=== PATIENT | male | born 1955 | race Caucasian/White ===

== ENCOUNTER 2020-06-22 07:53 | Outpatient (REF) | payer OTHER, SELFPAY | END 2020-06-22 07:54 | disposition home or self-care (01) | LOC: HO.LAB 07:53 | PROVIDERS: PCP Internal Medicine; Visit Provider Internal Medicine | DX: Z20.828 Contact with and (suspected) exposure to other viral communicable diseases (principal) | CPT/HCPCS: C9803; U0003 ==

== ENCOUNTER 2020-09-29 11:01 | Outpatient (REF) | payer OTHER, SELFPAY ==
[2020-09-29 12:50] LABS: MANUAL DIFF FLAG NO
[2020-09-29 13:12] LABS: Basophils Absolute Auto 0.1 X10*3/uL (0.0-0.2); Basophils Percent Auto 0.8 % (0-2); Eosinophils Absolute Auto 0.1 X10*3/uL (0.0-0.4); Eosinophils Percent Auto 1.4 % (0-4); Hematocrit 46.4 % (42-52); Hemoglobin 16.7 g/dl (14.0-18.0); Imm Gran Abs Auto 0.03 X10*3/uL (0.00-0.03); Imm Gran Pct Auto 0.4 % (0.0-0.4); Lymphocytes Absolute Auto 2.8 X10*3/uL (1.2-4.9); Mean Corpuscular Hemoglobin 32.6 pg (27.0-33.0); Mean Corpuscular Volume 90.6 fL (80-98); Mean Platelet Volume 11.1 fL (9.4-12.4); Monocytes Absolute Auto 0.8 X10*3/uL (0.1-1.2); Monocytes Percent Auto 10.2 % (2-11); Neutrophils Absolute Auto 3.8 X10*3/uL (2.0-8.3); Neutrophils Percent Auto 50.2 % (45-73); Platelet Count 329 X10*3/uL (160-400); Red Blood Count 5.12 X10*6/uL (4.60-5.80); Red Cell Distribution Width 11.6 % (11.0-16.0); White Blood Count 7.6 X10*3/uL (4.8-10.8)
[2020-09-29 13:30] LABS: Alanine Aminotransferase 45 U/L (0-40); Albumin Level 4.7 g/dL (3.5-5.0); Alkaline Phosphatase 134 U/L (39-117); Anion Gap 15 (12-20); Aspartate Amino Transferase 28 U/L (5-37); Bilirubin Total 0.5 mg/dL (0.0-1.0); Blood Urea Nitrogen 15 mg/dL (9-16); C Reactive Protein 0.04 mg/dL (< or = 0.50); Calcium 9.5 mg/dL (8.4-10.2); Carbon Dioxide 26 mmol/L (22-29); Chloride 103 mmol/L (96-108); Estimated Glomerular Filt Rate > 60; Glucose Random 155 mg/dL (60-115); Sodium 140 mmol/L (135-145); Total Protein 7.1 g/dL (6.5-8.0)
[2020-09-29 14:54] LABS: Erythrocyte Sedimentation Rate 2 MM/HR (0-15)
[2020-09-30 08:42] LABS: Lyme Abs Screen <0.90 index
[2020-09-30 17:52] LABS: EBV-VCA IgG Ab >750.00 U/mL; EBV-VCA IgM Ab <36.00 U/mL
== END 2020-09-29 11:02 | disposition home or self-care (01) ==
LOC: HO.MANLDS 11:01
PROVIDERS: PCP Internal Medicine; Visit Provider Physician Assistant
DX: D72.829 Elevated white blood cell count, unspecified (principal)
CPT/HCPCS: 36415; 80053; 85025; 85652; 86140; 86618; 86664; 86665

== ENCOUNTER 2021-10-06 07:33 | Outpatient (REF) | payer BC, SELFPAY ==
[2021-10-06 11:03] LABS: MANUAL DIFF FLAG NO
[2021-10-06 11:15] LABS: Basophils Absolute Auto 0.1 X10*3/uL (0.0-0.2); Basophils Percent Auto 0.9 % (0-2); Eosinophils Absolute Auto 0.2 X10*3/uL (0.0-0.4); Eosinophils Percent Auto 2.3 % (0-4); Hematocrit 45.2 % (42.0-52.0); Hemoglobin 16.1 g/dl (14.0-18.0); Imm Gran Abs Auto 0.03 X10*3/uL (0.00-0.03); Imm Gran Pct Auto 0.5 % (0.0-0.4); Lymphocytes Absolute Auto 2.9 X10*3/uL (1.2-4.9); Lymphocytes Percent Auto 43.7 % (20-40); Mean Corpuscular HGB Conc 35.6 g/dl (31.0-36.0); Mean Corpuscular Hemoglobin 32.5 pg (27.0-33.0); Mean Corpuscular Volume 91.1 fL (80.0-98.0); Mean Platelet Volume 11.2 fL (9.4-12.4); Monocytes Absolute Auto 0.6 X10*3/uL (0.1-1.2); Monocytes Percent Auto 9.8 % (2-11); Neutrophils Absolute Auto 2.8 x10*3/uL (2.0-8.3); Neutrophils Percent Auto 42.8 % (45-73); Platelet Count 307 X10*3/uL (160-400); Red Blood Count 4.96 X10*6/uL (4.60-5.80); Red Cell Distribution Width 11.7 % (11.0-16.0); White Blood Count 6.6 X10*3/uL (4.8-10.8)
[2021-10-06 11:41] LABS: Alanine Aminotransferase 39 U/L (0-40); Albumin Level 4.2 g/dL (3.5-5.0); Alkaline Phosphatase 132 U/L (39-117); Anion Gap 12 (12-20); Aspartate Amino Transferase 24 U/L (5-37); Bilirubin Total 0.7 mg/dL (0.0-1.0); Blood Urea Nitrogen 17 mg/dL (9-16); Calcium 9.4 mg/dL (8.4-10.2); Carbon Dioxide 25 mmol/L (22-29); Chloride 105 mmol/L (96-108); Cholesterol 161 mg/dL; Estimated Glomerular Filt Rate > 60; Glucose Fasting 245 mg/dL (60-99); HDL Cholesterol 37 mg/dL; LDL Cholesterol Calculated 101 mg/dl; Potassium 4.1 mmol/L (3.3-5.1); Sodium 138 mmol/L (135-145); Total Protein 6.6 g/dL (6.5-8.0); Triglycerides 117 mg/dL
[2021-10-06 12:05] LABS: Prostate Specific Antigen 1.21 ng/mL (<0.05-4.0); Thyroid Stimulating Hormone 0.59 uIU/mL (0.32-4.0); Vitamin D 25-OH Total 20.6 ng/mL (>30)
== END 2021-10-06 07:34 | disposition home or self-care (01) ==
LOC: HO.MANLDS 07:33
PROVIDERS: PCP Internal Medicine; Visit Provider Internal Medicine
DX: Z00.00 Encounter for general adult medical examination without abnormal findings (principal); Z12.5 Encounter for screening for malignant neoplasm of prostate
CPT/HCPCS: 36415; 80053; 80061; 82306; 84153; 84443; 85025

== ENCOUNTER 2021-10-08 12:05 | Outpatient (REF) | payer BC, SELFPAY ==
[2021-10-08 14:04] LABS: Estimated Average Glucose 220 mg/dL; Hemoglobin A1c % 9.3 %
== END 2021-10-08 12:06 | disposition home or self-care (01) ==
LOC: HO.MANLDS 12:05
PROVIDERS: PCP Internal Medicine; Visit Provider Internal Medicine
DX: R73.01 Impaired fasting glucose (principal)
CPT/HCPCS: 36415; 83036

== ENCOUNTER 2022-01-04 07:46 | Outpatient (REF) | payer SELFPAY ==
[2022-01-04 11:59] LABS: Estimated Average Glucose 123 mg/dL; Hemoglobin A1c % 5.9 %
== END 2022-01-04 07:47 | disposition home or self-care (01) ==
LOC: HO.MANLDS 07:46
PROVIDERS: Visit Provider Internal Medicine
DX: E11.9 Type 2 diabetes mellitus without complications (principal)
CPT/HCPCS: 36415; 83036

== ENCOUNTER 2022-04-22 07:34 | Outpatient (REF) | payer MEDICARE, SELFPAY ==
[2022-04-22 11:48] LABS: Estimated Average Glucose 117 mg/dL; Hemoglobin A1c % 5.7 %
== END 2022-04-22 07:35 | disposition home or self-care (01) ==
LOC: HO.MANLDS 07:34
PROVIDERS: Visit Provider Internal Medicine
DX: E11.9 Type 2 diabetes mellitus without complications (principal)
CPT/HCPCS: 36415; 83036

== ENCOUNTER 2022-09-02 07:25 | Outpatient (REF) | payer MEDICARE, SELFPAY ==
[2022-09-02 12:13] LABS: Estimated Average Glucose 120 mg/dL; Hemoglobin A1c % 5.8 %
== END 2022-09-02 07:26 | disposition home or self-care (01) ==
LOC: HO.MANLDS 07:25
PROVIDERS: Visit Provider Internal Medicine
DX: E11.9 Type 2 diabetes mellitus without complications (principal)
CPT/HCPCS: 36415; 83036

== ENCOUNTER → 2022-09-14 12:19 | Outpatient (BNVA) | payer SELFPAY | PROVIDERS: PCP Internal Medicine; Visit Provider Physician Assistant Medical | DX: Z02.79 Encounter for issue of other medical certificate (principal) ==

== ENCOUNTER 2022-11-04 07:38 | Outpatient (REF) | payer MEDICARE, BC, OTHER, SELFPAY ==
[2022-11-04 11:51] LABS: Estimated Average Glucose 126 mg/dL
== END 2022-11-04 07:39 | disposition home or self-care (01) ==
LOC: HO.MANLDS 07:38
PROVIDERS: Visit Provider Internal Medicine
DX: E11.9 Type 2 diabetes mellitus without complications (principal)
CPT/HCPCS: 36415; 83036

== ENCOUNTER 2023-06-14 08:20 | Outpatient (REF) | payer MEDICARE, SELFPAY ==
[2023-06-14 13:34] LABS: Estimated Average Glucose 140 mg/dL; Hemoglobin A1c % 6.5 % (<6.0)
[2023-06-14 13:42] LABS: Alanine Aminotransferase 24 U/L (0-40); Albumin Level 4.2 g/dL (3.5-5.0); Alkaline Phosphatase 149 U/L (39-117); Anion Gap 13 (12-20); Aspartate Amino Transferase 19 U/L (5-37); Bilirubin Total 0.4 mg/dL (0.0-1.0); Blood Urea Nitrogen 24 mg/dL (9-16); Calcium 9.4 mg/dL (8.4-10.2); Carbon Dioxide 25 mmol/L (22-29); Chloride 107 mmol/L (96-108); Cholesterol 114 mg/dL (<200); Estimated Glomerular Filt Rate > 60; Glucose Random 140 mg/dL (60-115); HDL Cholesterol 40 mg/dL (>40); LDL Cholesterol Calculated 54 mg/dL (<100); Potassium 3.7 mmol/L (3.3-5.1); Sodium 141 mmol/L (135-145); Total Protein 6.8 g/dL (6.5-8.0); Triglycerides 101 mg/dL (<150)
== END 2023-06-14 08:21 | disposition home or self-care (01) ==
LOC: HO.MANLDS 08:20
PROVIDERS: Visit Provider Internal Medicine
DX: E11.9 Type 2 diabetes mellitus without complications (principal)
CPT/HCPCS: 36415; 80053; 80061; 83036

== ENCOUNTER → 2023-10-05 07:51 | Outpatient (BNVA) | payer SELFPAY | PROVIDERS: PCP Internal Medicine; Visit Provider Physician Assistant Medical | DX: Z02.79 Encounter for issue of other medical certificate (principal) ==

== ENCOUNTER 2023-10-06 10:02 | Outpatient (REF) | payer MEDICARE, SELFPAY ==
[2023-10-06 13:42] LABS: Appearance Urine Clear; Color Urine Yellow; Glucose Urine UA Negative (Negative); Leukocyte Esterase Urine Negative (Negative); Nitrite Urine Negative (Negative); Urine Blood Negative (Negative); Urine Ketones Negative (Negative); Urine Protein Negative (Neg-Trace)
[2023-10-06 13:45] LABS: MANUAL DIFF FLAG NO
[2023-10-06 13:54] LABS: Basophils Absolute Auto 0.1 X10*3/uL (0.0-0.2); Basophils Percent Auto 0.8 % (0-2); Eosinophils Absolute Auto 0.2 X10*3/uL (0.0-0.4); Eosinophils Percent Auto 2.3 % (0-4); Hematocrit 47.8 % (42.0-52.0); Hemoglobin 16.5 g/dl (14.0-18.0); Imm Gran Abs Auto 0.02 X10*3/uL (0.00-0.03); Imm Gran Pct Auto 0.3 % (0.0-0.4); Lymphocytes Percent Auto 39.9 % (20-40); Mean Corpuscular HGB Conc 34.5 g/dl (31.0-36.0); Mean Corpuscular Hemoglobin 31.4 pg (27.0-33.0); Monocytes Absolute Auto 0.7 X10*3/uL (0.1-1.2); Monocytes Percent Auto 9.2 % (2-11); Neutrophils Absolute Auto 3.5 x10*3/uL (2.0-8.3); Neutrophils Percent Auto 47.5 % (45-73); Platelet Count 287 X10*3/uL (160-400); Red Blood Count 5.25 X10*6/uL (4.60-5.80); Red Cell Distribution Width 11.7 % (11.0-16.0); White Blood Count 7.4 X10*3/uL (4.8-10.8)
[2023-10-06 14:35] LABS: Alanine Aminotransferase 24 U/L (0-40); Albumin Level 4.3 g/dL (3.5-5.0); Alkaline Phosphatase 109 U/L (39-117); Anion Gap 11 (12-20); Aspartate Amino Transferase 21 U/L (5-37); Bilirubin Total 0.6 mg/dL (0.0-1.0); Blood Urea Nitrogen 18 mg/dL (9-16); Calcium 9.9 mg/dL (8.4-10.2); Carbon Dioxide 29 mmol/L (22-29); Chloride 105 mmol/L (96-108); Estimated Glomerular Filt Rate > 60; Glucose Random 163 mg/dL (60-115); Iron 147 mcg/dL (45-160); Percent Iron Saturation 54 % (15-50); Potassium 4.4 mmol/L (3.3-5.1); Sodium 141 mmol/L (135-145); Total Iron Binding Capacity 273 mcg/dL (228-428); Total Protein 7.1 g/dL (6.5-8.0); Unsaturated Iron Binding 126 ug/dL
[2023-10-06 14:40] LABS: Ferritin 499 ng/mL (20-250)
== END 2023-10-06 10:03 | disposition home or self-care (01) ==
LOC: HO.MANLDS 10:02
PROVIDERS: Visit Provider Physician Assistant
DX: R31.29 Other microscopic hematuria (principal)
CPT/HCPCS: 36415; 80053; 81003; 82728; 83540; 85025

== ENCOUNTER 2024-12-10 15:27 | Outpatient (REF) | payer MEDICARE, SELFPAY ==
[2024-12-10 18:18] LABS: Estimated Average Glucose 289 mg/dL; Hemoglobin A1c % 11.7 % (<6.0)
[2024-12-10 18:29] LABS: Alanine Aminotransferase 21 U/L (0-40); Albumin Level 4.7 g/dL (3.5-5.0); Alkaline Phosphatase 105 U/L (39-117); Anion Gap 12 (12-20); Aspartate Amino Transferase 26 U/L (5-37); Bilirubin Total 0.5 mg/dL (0.0-1.0); Blood Urea Nitrogen 20 mg/dL (9-16); Calcium 9.5 mg/dL (8.4-10.2); Carbon Dioxide 26 mmol/L (22-29); Chloride 103 mmol/L (96-108); Estimated Glomerular Filt Rate > 60; Glucose Random 251 mg/dL (60-115); Potassium 4.4 mmol/L (3.3-5.1); Sodium 137 mmol/L (135-145); Total Protein 6.8 g/dL (6.5-8.0)
--- OUTSIDE RECORDS SUMMARY | 2024-12-10 18:36 | XMS_ITS | Data Portability ---
Author Organization [facility] [employer] [facility], [facility] Address [address] [place] [address] Care Team Providers Care Filling Hauler Name Role Phone JENNIFER BRIONES Referring Provider [phone] Assessment No assessment recorded. Plan of Treatment Reminders Order Date Submit Date Provider Last Modified By Organization Details Last Modified Time Details Appointments None record ed. Lab None record ed. Referral None record ed. Procedures None record ed. Surgeries None record ed. Imaging None record ed. Medication Orders None record ed. Patient TargetsNo targets recorded. Patient Instructions Encounter Date Encounter Id Patient Instructions Last Modified By Organization Details Last Modified Time 11/03/2018 [id number] YOU CAN TAKE CHLOROSEPTIC MAX THROAT SPRAY OTC IT IS IMPORTANT YOU INFORM YOUR PRIMARY CARE PROVIDER ABOUT THIS VISIT SO THAT ANY NECESSARY FOLLOW UP EVALUATION AND MANAGEMENT CAN BE PROVIDED. IF YOU ARE NOT BEGINNING TO IMPROVE WITHIN 3-5 DAYS, PLEASE RETURN HERE OR SEE YOUR PRIMARY CARE PROVIDER. IF YOU BECOME WORSE, YOU SHOULD GO TO AN EMERGENCY DEPARTMENT. YOU MAY TAKE TYLENOL EXTRA STRENGTH [email or web address] Not available 11/03/2018 12:43:00 Reason for Referral None Reported. Procedures Surgical History Date Name Laterality Status Provider Name and Address Organization Details Recorded Time 4 Unlisted px arthroscopy completed Ashtyn Books [facility] [employer] [facility] 11/03/2018 11:58:26 Imaging Results None recorded. Procedure Notes None recorded. Medical Equipment None Reported. Allergies No known drug allergies Medications Name Sig Start Date Stop Date Status Note LastModified by Organization Details LastModified Time amlodipine active Not Available Not Av ailable Not Available simvastatin active Not Available Not A vailable Not Available losartan active Not Available Not Avai lable Not Available Prilosec active Not Available Not Avai lable Not Available Vitals Date Recorded Body weight Body mass index (BMI) Body height Body temperature Heart rate Respiratory rate Oxygen saturation Oxygen saturation in Arterial blood by Pulse oximetry Systolic blood pressure Diastolic blood pressure Systolic blood pressure Diastolic blood pressure Provider Name and Address Organization Details Last Updated DateTime 9 09440.9 5 g 31.9 kg/m2 175.26 cm 97.5 [degF] 81 /min 18 /min 95 % 95 % 156 mm[Hg] 90 mm[Hg] 146 mm[Hg] 91 mm[Hg] [facility] 9 11:55:04 Social History Question Answer Notes LastModified by M[employer] Details LastModified Time Tobacco Smoking Status Former Sm[facility] 11/03/2018 11:56:18 Which Illicit Or Recreational Drugs Have You Used? Nobne [email or web address] Information not available 11/03/2018 Alcohol Use No Information n ot available 11/03/2018 Year Quit Tobacco Use 1983 [email or web address] Information not available 11/03/2018 Marital Status Informatio n not available 11/03/2018 What Was The Date Of Your Most Recent Tobacco Screening? 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 Moderate Information not available 11/03/2018 Mental Status None recorded. Family History Relationship Description Onset Age of this Age Resolved Age Notes LastModified by Organization Details LastModified Time Mother Carcinoma of lung 75 [email or web address] Not available 2018 11:55:45 Medical History Condition Response Cancer (location) N Other N Gout N Kidney Stones N Measles/Mumps N Sexually Transmitted Disease N Depression N Prostate Problems N Parkinson's N Paralysis N Headaches/Migraines N Cardiac Pacemaker/defibrillator N Arthritis N Crohn's Disease N HIV/AIDS N Stroke/TIA N Kidney Disease N Gallbladder disease N High blood pressure Y Alcohol Overuse N Blood Thinner Treatment N Nervous Breakdown N Montez's Esophagus N Urinary Problems N Gastritis Y Back pain N Rheumatic Fever N Bleeding Disorder N Osteopenia/Osteoporosis N Asthma N Ostomies (location) N Seizures N Jaundice N Hepatitis N Cirrhosis N Chicken Pox N Allergies (other than meds) N Thyroid Disease N Emphysema/COPD N Vascular Disease N Rash/Skin Condition N Amputation (location) N Nerve Damage / Neuropathy N Sleep disorder/Insomnia N Heart disease / Heart Attack N High Cholesterol Y Colon Problems N Serious Injuries N Memory Loss/Alzheimer's N Congestive heart failure N Falls N Hormone Replacement N Anemia N Colon Polyps N Hospitalizations (other than operations) N Diabetes N Cardiac Arrhythmias /irregular heart rat e N Anxiety/Stress N Vision Problems N Erectile / Sexual Dysfunction N Sleep Apnea N GERD/Ulcer N Past Encounters Encounter ID Performer Location Encounter Start Date Encounter Closed Date Diagnosis/Indication Diagnosis SNOMED-CT Code Diagnosis ICD10 Code Diagnosis Note [id number] JENNIFER BRIONES, ENERGY AND SUSTAINABILITY MANAGER [facility] [address] [place] [address] 11/03/2018 10:44:56 11/03/2018 14:48:25 Pain in throat 330500803 R07.0 ACUTE Health Concerns Section Related Observation LastModified by Organization Detai ls LastModified Time None Recorded Concern Status LastModified by Organization Details LastModified Time None Recorded Advance Directives Directive None Recorded Payers Insurance Date Sequence Insurance Name Policy Number Policy Jimenez Covered Member ID Jimenez Member ID Guarantor Name 11/03/[address] [place] [address] ([facility]) [id number] Bambi Ramirez [id number] Vinicio Ramirez Notes Date Note Type Note Provider Name and Address Organization Details Recorded Time 11/03/2018 text/html PATIENT REPORTS COUGH STARTED 9 DAYS AGO AND HAS RESOLVED, THEN A FEW DAYS AGO SORE THROAT AND B/L EAR PAIN. DENIES FEVERS. HAS NOT TAKEN ANYTHING OTC. JENNIFER BRIONES, ENERGY AND SUSTAINABILITY MANAGER [address], [place], [address], [facility] 11/03/2018 12:43:59
== END 2024-12-10 15:28 | disposition home or self-care (01) ==
LOC: HO.MANLDS 15:27
PROVIDERS: Visit Provider Internal Medicine
DX: E11.9 Type 2 diabetes mellitus without complications (principal)
CPT/HCPCS: 36415; 80053; 83036

== ENCOUNTER 2025-03-25 07:32 | Outpatient (REF) | payer MEDICARE, SELFPAY ==
--- OUTSIDE RECORDS SUMMARY | 2025-03-25 07:35 | XMS_ITS | Encounter Summary ---
Author Organization [facility] Address [address] [place] [address] Phone Care Team Providers Care Airline Hostess Name Role Phone Joe Reed Primary Care Provider [phone] Reason for Referral * MRI/CAT Scan - Closed Specialty Diagnoses / Procedures Referred By Contbrian t Referred To Contact Radiology Diagnoses Screening for cardiovascular condition Procedures NC Myocardial Perfusion Pharmacologic Stress Multiple NC Myocardial Perfusion Exercise Multiple Joy Brumfield CNP Phone: tel: fax: [email or web address] Referral ID Status Reason Start Date Expiration Date Visits Re quested Visits Authorized [id number] Closed 11/22/2022 01/20/2023 1 1 Encounter Details Date Type Department Care Team (Latest Contact Info) Description 12/01/2022 Ancillary [facility] [address] [facility] [address]rd Floor, [address] [place] [id number] Joy Brumfield CNP [address] [facility], [address] [address] [email or web address] Screening for cardiovascular condition Social History Tobacco Use Types Packs/Day Years Used Date Smoking Tobacco: Former Smokeless Tobacco: Never Alcohol Use Standard Drinks/Week Comments No 0 (1 standard drink = 0.6 oz pur e alcohol) Education Answer Date Recorded Are you interested in more education? Not on davion e 10/28/2022 Are you concerned about learning? Not on file 10/28/2022 No 10/28/2022 No 10/28/2022 Digital Access Answer Date Recorded No 11/26/2022 No 11/26/2022 Reliable internet access at home? Not on file 11/26/2022 Device with a working camera? Not on file Sex and Gender Information Value Date Recorded Sex Assigned at Not on file Legal Sex Male 9:53 PM EDT Gender Identity Not on file Sexual Orientation Not on file documented as of this encounter Plan of Treatment Upcoming Encounters Date Type Department Care Team (Late st Contact Info) Description 11/04/2025 7:40 AM EDT Office Visit [facility] [address] [facility] [address] Floor, [address] [place] [address] Evan Collado MD [address] [facility], [address] [place] [address] [email or web address] documented as of this encounter Results * NC Myocardial Perfusion Pharmacologic Stress Multiple (12/01/2022 9:32 AM EDT) Nuc Stress EF 62 % LV Systolic Volume 35 mL LV Diastolic Volume 92 mL EF 62 % LV Systolic Volume Index 37 mL/m2 LV Diastolic Volume Index 99 mL/m2 Anatomical Region Laterality Modality Heart, Vascular Ultrasound Narrative 12/01/2022 2:39 PM EDT Myocardial perfusion stress test imaging report-Normal No significant myocardial perfusion defects were seen at stress and at rest images Normal left ventricular systolic function. LV EF is 62% TID 1.1 Conclusion; No ischemia or infarction seen Normal left ventricular systolic function. Nuclear Study Quality TYPE OF STUDY: Myocardial Perfusion Imaging after Regadenoson protocol with gated SPECT. PROTOCOL USED: One day Regadenoson rest-stress protocol in the supine and prone position. Images were obtained in gated tomographic technique. Images were processed in SPECT format, reconstructed tomographically and compared [id number] in short axis, horizontal long axis and vertical long axis. DOSE: Technetium 99m Sestamibi 7.4 mCi injected intravenously in the right arm antecubital vein at rest on 12/01/2022 with post injection scan time of 60 minutes. Technetium 99m Sestamibi 21.8 mCi injected intravenously in the right arm antecubital vein after Regadenoson infusion on 12/01/2022 with post injection scan time of 40 minutes. Overall image quality is good. Diaphragmatic attenuation artifact is present. Study was gated successfully. The lung to heart ratio is 0.31 Response to Stress REPORT: RILEY PROTOCOL CONVERTED TO A WALKING REGADENOSON STUDY WEIGHT:201 LB BMI: 29.67 The Nuclear study started as a Riley Protocol but after one minute into stage two (pt held metoprolol 25mg x 2 days), the patient blood pressure went to 230/110. The test was switched to a walking pharmacologic study. Vinicio Whiting received 0.4 mg of Regadenoson (lexiscan) after walking on the treadmill for 1.0 minutes at 1.0 miles per hour. Regadenoson was given IV push over 10 seconds as per protocol immediately followed by injection of Tc99m Sestamibi by Paddy Wallace, the nuclear reactor engineer. 1. EKG: Baseline EKG showed sinus rhythm at 74 bpm. After injection of Lexiscan, there were EKG changes suggestive of ischemia of up to 2mm downslopping/horizontal ST depression in inferior leads and V4-V6. 2. SYMPTOMS: No chest pain. Patient experienced no mild SOB w/ Regadenoson injection. Symptoms resolved spontaneously 2-3 minutes into recovery. 3. STRESS PHYSIOLOGY - Functional capacity not assessed. Resting BP 160/100, 230/100 post stress, and 180/90 at discharge.Elevated BP at baseline with hypertensive response to exercise prior to converting test to pharmacological stress test. 4. ARRHYTHMIAS: Rare PVCs. STRESS CONCLUSION: Positive EKG portion after pharmacologic stress test with low grade exercise, without symptoms, and with EKG changes suggestive of ischemia of up to 2mm downslopping/horizontal ST segment depressions in inferior and V4-V6. Functional capacity not assessed. Nuclear imaging report to follow. See attached stress report for full details. RADHA Hylton . Perfusion Comments Stress LV cavity volume was 62 mL. Resting LV cavity volume was 58 mL. The stress/rest perfusion ratio is 1.07. There is no evidence of transient ischemic dilation (TID). The TID ratio was 1.1. Stress Function Comments Left ventricular function post-stress was normal. Post-stress ejection fraction was 62%. The stress end diastolic cavity size is normal. Stress end diastolic index: 99 mL/m2. The stress end systolic cavity size is normal. Stress end systolic index: 37 mL/m2. Nuclear Prior Study There is no prior study available for comparison. Rest Function Comments Left ventricular function at rest was normal. Resting ejection fraction was 62%. The rest end diastolic cavity size is normal. Rest end diastolic index: 92 mL. The rest end systolic cavity size is normal. Rest end systolic index: 35 mL. Perfusion Scoring Stress Summed Score: 0 Percent Normal: 0.00% The left ventricular perfusion is normal. Perfusion Scoring Resting Summed Score: 0 Percent Normal: 0.00% The left ventricular perfusion is normal. Procedure Note Shun Crow MD - 12/01/2022 Myocardial perfusion stress test imaging report-Normal No significant myocardial perfusion defects were seen at stress and atrest images Normal left ventricular systolic function. LV EF is 62% TID 1.1 Conclusion; No ischemia or infarction seen Normal left ventricular systolic function. us Joy Pulchtopek DOSIMETRIST CV NM CARDIAC Final Resul t documented in this encounter Visit Diagnoses Diagnosis Screening for cardiovascular condition Screening for other and unspecified cardiovascular conditions Screening for cardiovascular condition Screening for other and unspecified cardiovascular conditions documented in this encounter Care Teams Airline Hostess Relationship Specialty Start Date End Date Joe Reed DO [address] [place] [address] [email or web address] PCP - General 04/18/17 documented as of this encounter Additional Source Comments The information contained in this document represents components of the legal health record. It is not the complete legal health record.[facility]
--- OUTSIDE RECORDS SUMMARY | 2025-03-25 07:35 | XMS_ITS | Clinical Summary ---
Author Organization [facility] Address [address] [place], [place] [id number] Phone Care Team Providers Care Adult Day Care Worker Name Role Phone Felisha Knott Primary Care Provider [phone] Allergies No known active allergies Medications losartan (COZAAR) 100 MG tablet Take 100 mg by mouth daily. Active omeprazole (PRILOSEC) 20 MG capsule Take 20 mg by mouth daily. Active rosuvastatin (CRESTOR) 20 MG tablet Take 20 mg by mouth daily. Active metoprolol succinate (TOPROL-XL) 100 MG 24 hr tablet Take 1 tablet by mouth every morning. 03/06/2024 Active amLODIPine (NORVASC) 5 MG tablet TAKE 1 TABLET(5 MG) BY MOUTH DAILY 90 tablet 3 12/03/2024 Active Active Problems Problem Noted Date Diagnosed Date Coronary artery disease invo lving t[place] apache coronary artery of t[place] apache heart without angina pectoris 09/28/2022 Assessment & Plan (02/26/2024 3:28 PM EDT): He does have coronary disease as seen by his elevated coronary calcium score. He had a nuclear stress test on 12/01/2022 which did not show any ischemia or prior infarction. Ideally would like his LDL to be less than 70. ECG in the office today showing sinus rhythm rate 66 bpm, normal axis, no significant ST or T wave abnormality Continue aspirin 81 mg daily Continue rosuvastatin 20 mg daily Will recheck lipid profile Assessment & Plan (09/28/2022 9:09 AM EDT): Patient has multiple risk factors for coronary artery disease including hypertension, hyperlipidemia, and diabetes mellitus he was being treated for all those above conditions and he was sent for calcium scoring his calcium score was high. Patient was sent for cardiology referral. At this point he is asymptomatic. We discussed that external calcium not necessarily also is accompanied by internal coronary artery stenosis but the incidence is high so we will do a exercise stress test make sure he does not have functional impairment because of atherosclerosis of the coronary artery. We will also do an echocardiogram make sure he did not have any silent IA. He will start baby aspirin along with his statin. High coronary artery calcium score 09/28/2022 Assessment & Plan (09/28/2022 9:10 AM EDT): This calcium score is high LAD 440 left circumflex 352 and RCA 92. He is already on statin start him on baby aspirin and he will have a stress test. Benign essential hypertension 09/28/2022 Assessment & Plan (11/04/2024 8:48 AM EDT): Patient reports that he has had hypertension since he was in his 30s. His blood pressure is usually in the 140s to 130s systolic. At last visit patient was started on hydrochlorothiazide which caused significant polyuria. His medication was switched to amlodipine he has done well since. Patient is currently on amlodipine, losartan, and metoprolol for blood pressure management. He is tolerating these medications well. No changes in management at this time. Will have patient return in 1 year. Plan: Continue amlodipine Continue losartan Continue metoprolol Follow-up in 1 year Assessment & Plan (02/26/2024 3:27 PM EDT): Not checking blood pressure at home. Blood pressure significantly elevated in the office today 188/100 when I checked myself. Currently not really exercising eating a lot of fast food and high salt foods. Previously he was started and then stopped with hydrochlorothiazide. He does not recall having any adverse effects with this. We did discuss at length the importance of avoiding salt and engaging in regular exercise. I have recommended looking into Dash or Mediterranean diet. I did include information for DASH diet to the after visit summary Start hydrochlorothiazide 25 mg daily Continue metoprolol succinate 25 mg daily Continue losartan 100 mg daily Check BMP Return for blood pressure check with an MA in 4 weeks If blood pressures persistently elevated would switch metoprolol to labetalol, consider workup for secondary causes of hypertension Assessment & Plan (09/28/2022 9:11 AM EDT): He has history of hypertension and is very well managed by his primary care physician with metoprolol succinate and losartan and hydrochlorothiazide. His blood pressure today is 07/22/1987 he will continue regimen prescribed by his PCP and get time to time blood work done for renal function. Hyperlipidemia 09/28/2022 Assessment & Plan (11/04/2024 8:49 AM EDT): Patient's last lipid panel showed that he was at goal. He is on rosuvastatin daily for management. He is tolerating this medication well. Will continue current management and have him follow-up in 1 year for with labs 1 week before his visit. Plan: Continue rosuvastatin Repeat lipid panel 1 week before next visit Follow-up in 1 year Assessment & Plan (02/26/2024 3:26 PM EDT): Repeating fasting lipid profile. Continue Crestor 20 mg daily Assessment & Plan (09/28/2022 9:12 AM EDT): He has history of hyperlipidemia and he is really well managed by his primary care physician with rosuvastatin at present he will get his lipids and LFTs checked time to time his LDL should be 70 or less. Social History Tobacco Use Types Packs/Day Years Used Date Smoking Tobacco: Former Smokeless Tobacco: Never Tobacco Cessation:Counseling Given: Not Answered Comments:Quit at age 27 Alcohol Use Standard Drinks/Week Comments No 0 [...] with a working camera? Not on file Intimate Partner Violence Answer Date R ecorded Are you denied basic needs s uch as food, clothing, or medical care? No 03/14/2024 In the past 12 months have y ou been in a relationship with a person who hurts, threatens, or tries to control you? No 03/14/2024 Are you denied basic needs s uch as food, clothing, or medical care? No 03/14/2024 In the past 12 months have y ou been in a relationship with a person who hurts, threatens, or tries to control you? No 03/14/2024 Sex and Gender Information Value Date Recorded Sex Assigned at Not on file Legal Sex Male 9:53 PM EDT Gender Identity Not on file Sexual Orientation Not on file Last Filed Vital Signs Vital Sign Reading Time Taken Comments Blood Pressure 132/90 11/04/2024 8:11 AM EDT Pulse 75 11/04/2024 8:11 AM EDT Temperature 36.2 C (97.1 F) 03/14/2024 8:15 AM EDT Respiratory Rate 14 03/14/2024 8:31 AM EDT Oxygen Saturation 97% 11/04/2024 8:11 AM EDT Inhaled Oxygen Concentration - - Weight 90.7 kg (200 lb) 11/04/2024 8:11 AM EDT Height 175.3 cm (5' 9.02 ) 11/04/2024 8:11 AM ED T Body Mass Index 29.52 11/04/2024 8:11 AM EDT Plan of Treatment Upcoming Encounters Date Type Department Care Team (Late st Contact Info) Description 11/04/2025 7:40 AM EDT Office Visit [facility] [address] [place] [address] [address]rd Floor, [address] [place] [address] Evan Collado MD [address] [facility], [address] [place] [address] [email or web address] Health Maintenance Due Date Last Done Comments DEPRESSION SCREENING 1969 SMOKING Hx and SMOKELESS TOBACCO SCREENING 1970 HEPATITIS C SCREENING 1975 COLOGUARD 2002 FIT TEST 2002 FOBT 2002 SIGMOIDOSCOPY 2002 VIRTUAL COLONOSCOPY 2002 PNEUMOCOCCAL VACCINES (50+ years) (1 of 1 - PCV) 2007 RSV VACCINE (1 - Risk 60-74 years 1-dose series) 2017 INFLUENZA VACCINE (#1) 2025 04/22/2023 COVID-19 VACCINE (3 - 2024-2 6 season) 2025 03/31/2021, 02/28/2021 CREATININE LEVEL 03/22/2025 03/22/2024, 08/04/2022 POTASSIUM LEVEL 03/22/2025 03/22/2024, 08/04/2022 BLOOD PRESSURE 05/07/2025 11/04/2024 SCREENING FOR DIABETES 08/04/2025 08/04/2022 COLONOSCOPY 11/19/2030 11/19/2020 COLORECTAL CANCER SCREENING 11/19/2030 Adult Td,Tdap Booster 11/21/2031 11/20/2021 ABDOMINAL AORTIC ANEURYSM (AAA) SCREENING Completed 05/10/2022 ZOSTER VACCINES Completed 06/27/2023, 04/22/2023 HEPATITIS A VACCINES Aged Out No long er eligible based on patient's age to complete this topic HIB VACCINES Aged Out No longer eligi ble based on patient's age to complete this topic MENINGOCOCCAL VACCINES (ACWY) Aged Out No longer eligible based on patient's age to complete this topic MENINGOCOCCAL VACCINES (B) Aged Out N o longer eligible based on patient's age to complete this topic Medical Devices Implanted Type Area Milling Machine Operator Device Identifier Shelf Expiration Date Model / Serial / Lot Wire Wire Right: Shoulder Procedures Procedure Name Priority Date/Time Associated Diagnosis Comments BASIC METABOLIC PANEL Routine 03/22/2024 7:44 AM EDT Benign essential hypertension US ABDOMINAL AORTIC SCREENING Routine 05/10/2022 10:40 AM EST Encounter for screening for cardiovascular disorders ENDOSCOPY, COLON 11/19/2020 8:30 AM EDT from Last 3 Months or Most Recently Relevant to Health Maintenance Results * (ABNORMAL) Basic metabolic panel (03/22/2024 7:44 AM EDT) SODIUM 140 133 - 146 mmol/L [facility] CHLORIDE 101 96 - 108 mmol/L [facility] POTASSIUM 4.0 3.3 - 5.1 mmol/L [facility] CO2 27 21 - 35 mmol/L [facility] BUN 20(H) 6 - 19 mg/dL [facility] CREATININE 0.90 0.5 - 1.5 mg/dL [facility] GLUCOSE 200(H) 70 - 99 mg/dL [facility] CALCIUM 9.5 8.4 - 10.3 mg/dL [facility] EGFR 94 >59 mL/min/1.7 3m2 [facility] Comment:Estimated glomerular filtration rate calculated using the CKD-EPI refit equation. ANION GAP 16 10 - 20 mmol/L [facility] Blood 03/22/2024 7:44 AM EDT 03/22/2024 7:46 AM EDT Kimber Ball [facility] BLOOD ORDERABLES Fin al Result Performing Organization Address City/State/[facility] Co de Phone Number [address] [address] * US Abdominal Aortic Screening (05/10/2022 10:40 AM EST) Anatomical Region Laterality Modality Abdomen Ultrasound 05/10/2022 10:4 7 AM EST Impressions 05/10/2022 10:49 AM EST No sonographic evidence of abdominal aortic aneurysm. Narrative 05/10/2022 10:49 AM EST US ABDOMINAL AORTIC SCREENING TECHNIQUE: Ultrasound of the Abdominal Aorta. COMPARISON: There is no prior study available for comparison FINDINGS: Examination of the abdominal aorta demonstrates no evidence of aneurysm. The abdominal aorta measures 1.9 cm proximally, 2.1 cm in its midportion, and 2.2 cm distally. The common iliac arteries are ectatic measuring 1.4 cm on the right and 1.2 cm on the left. Procedure Note Edwige Mata MD - 05/10/2022 US ABDOMINAL AORTIC SCREENING TECHNIQUE: Ultrasound of the Abdominal Aorta. COMPARISON: There is no prior study available for comparison FINDINGS: Examination of the abdominal aorta demonstrates no evidence of aneurysm.The abdominal aorta measures 1.9 cm proximally, 2.1 cm in its midportion,and 2.2 cm distally. The common iliac arteries are ectatic measuring 1.4 cm on the right and1.2 cm on the left. IMPRESSION: No sonographic evidence of abdominal aortic aneurysm. us Felisha Knott DO IMG US ABDOMEN Final Result * ENDOSCOPY, COLON (11/19/2020 8:30 AM EDT) Narrative Transcriptions Lokesh Salmeron MD - 11/19/2020 8:30 AM EDT Patient Name: Vinicio Ramirez Attending MD:: LOKESH SALMERON MD Procedure Date: 11/19/2020 8:30 AM Date of : 1955 Age: 65 Admit Type: Outpatient Gender: Male Room: [place] [address] Referring MD: FELISHA KNOTT DO Exam Type: Colonoscopy Indications: High risk colon cancer surveillance: Personalhistory of colonic polyps, Last colonoscopy: date unknown Medications: Monitored Anesthesia Care Procedure: Informed consent was obtained from the patient after discussion of the indications, limitations, alternatives, benefits, and risks of the procedure. Risks specifically discussed include but are not limited to medication reactions, missed lesions, bleeding, perforation, or the need for emergentsurgery. Throughout the procedure, the patient's bloodpressure, pulse, end-tidal CO2, and oxygen saturations were monitored continuously. The Olympus adult variable colonoscope [id number] #4was introduced through the anus and advanced to thececum, identified by the appendiceal orifice. Thecolonoscopy was performed without difficulty. The patienttolerated the procedure well. The quality of the bowel preparation was good. Complications: No immediate complications. Estimated blood loss:None. Findings: The perianal and digital rectal examinations were normal. The rectum, recto-sigmoid colon, sigmoid colon, descending colon, splenic flexure, transverse colon, hepatic flexure, ascending colon, cecum, appendiceal orifice, ileocecal valve, rectum (on retroflexion)and ascending colon (on retroflexion) appeared normal. Impression: - The rectum, recto-sigmoid colon, sigmoid colon, descending colon, splenic flexure, transverse colon, hepatic flexure, ascending colon, cecum, appendiceal orifice and ileocecal valve are normal. - No specimens collected. Recommendation: - Discharge patient to home. - Resume previous diet. - Continue present medications. - Repeat colonoscopy in 7 years for surveillance. - Your colonoscopy was normal with no polyps orcolitis. LOKESH SALMERON MD 11/19/2020 8:48:22 AM This report has been signed electronically. Number of Addenda: 0 Note Initiated On: 11/19/2020 8:30 AM Procedure Code(s): --- Professional --- 81035, Colonoscopy, flexible; diagnostic, including collection of specimen(s) by brushing or washing, when performed (separateprocedure) --- Technical --- 28449, Colonoscopy, flexible; diagnostic, including collection of specimen(s) by brushing or washing, when performed (separateprocedure) Diagnosis Code(s): --- Professional --- Z86.010, Personal history of colonic polyps --- Technical --- Z86.010, Personal history of colonic polyps CPT copyright 2018 [employer]. All rights reserved. The codes documented in this report are preliminary and upon data coder operator reviewmay be revised to meet current compliance requirements. Procedure Date: 11/19/2020 8:30:27 AM [address] [place] [address] us Felisha Colindresloyd RAMOS GI PROCEDURE ORDERABLES Final Re sult from Last 3 Months or Most Recently Relevant to Health Maintenance [place] [address] [place] [address] MEDICARE PPO BLUE [place] [address] [address] [place] [address] MEDICARE PPO BLUE REPLACEMENT MEDICARE PPO BLUE REPLACEMENT MEDICARE PPO BLUE [place] [address] [address] [place] [address] MEDICARE PPO BLUE REPLACEMENT Care Teams Adult Day Care Worker Relationship Specialty Start Date End Date Felisha Knott DO [address] [place] [id number] [email or web address] PCP - General 04/18/17 Additional Source Comments The information contained in this document represents components of the legal health record. It is not the complete legal health record.[facility]
--- OUTSIDE RECORDS SUMMARY | 2025-03-25 07:35 | XMS_ITS | Encounter Summary ---
Author Organization [facility] Address [address] [place] [address] Phone Care Team Providers Care Shank Cementer Hand Name Role Phone Joe Reed DO Primary Care Provider [phone] Reason for Referral * Outpatient Procedure - Closed Specialty Diagnoses / Procedures Referred By Parmjit jackson Referred To Contact Radiology Diagnoses Encounter for screening for cardiovascular disorders Procedures US Abdominal Aortic Screening Joe Reed DO Phone: tel: fax: [email or web address] Referral ID Status Reason Start Date Expiration Date Visits Re quested Visits Authorized [id number] Closed 04/27/2022 1 1 Encounter Details Date Type Department Care Team (Late Contact Info) Description 04/27/2022 Transcribe Orders Virtual Department [address] [place] [address] Joe Reed DO [address] [facility] [place] [address] [email or web address] Encounter for screening for cardiovascular disorders (Primary Dx) Social History Tobacco Use Types Packs/Day Years Used Date Smoking Tobacco: Former Smokeless Tobacco: Never Alcohol Use Standard Drinks/Week Comments No 0 (1 standard drink = 0.6 oz pur e alcohol) Sex and Gender Information Value Date Recorded Sex Assigned at Not on file Legal Sex Male 9:53 PM EDT Gender Identity Not on file Sexual Orientation Not on file documented as of this encounter Plan of Treatment Upcoming Encounters Date Type Department Care Team (Late Contact Info) Description 11/04/2025 7:40 AM EDT Office Visit [facility] [address] [facility] 3rd Floor, [address] [place] [address] Evan Collado MD [address] [facility], [address] [place] [address] [email or web address] documented as of this encounter Results * US Abdominal Aortic Screening (05/10/2022 10:40 [...] sonographic evidence of abdominal aortic aneurysm. us Joe A Bigda DO IMG US ABDOMEN Final Result documented in this encounter Visit Diagnoses Diagnosis Encounter for screening for cardiovascular disorders- Primary Encounter for screening for cardiovascular disorders Benign essential hypertension Essential hypertension, benign documented in this encounter Care Teams Shank Cementer Hand Relationship Specialty Start Date End Date Bigda, Joe ADO [address] [place] [address] [email or web address] PCP - General 04/18/17 documented as of this encounter Additional Source Comments The information contained in this document represents components of the legal health record. It is not the complete legal health record.[facility]
--- OUTSIDE RECORDS SUMMARY | 2025-03-25 07:35 | XMS_ITS | Encounter Summary ---
Author Organization [facility] Address [address] [facility] [address] [place] [address] Phone Care Team Providers Care Auto Parker Name Role Phone Joe Reed DO Primary Care Provider [phone] Joe Reed DO Unavailable Encounter Details Date Type Department Care Team (Latest Contact Info) Description 03/18/2021 Transcribe Orders Virtual Department [address] [place] [address] Lokesh Anderson MD [address] [place] [phone] Encounter for laboratory testing for COVID-19 virus (Primary Dx) Social History Tobacco Use Types [...] Description 11/04/2025 7:40 AM EDT Office Visit [facility] [address] [place] [address] [address]rd Floor, [address] [place] [address] Evan Collado MD [address] [facility], [address] [place] [address] documented as of this encounter Results * COVID-19 PCR Order (03/22/2021 5:00 PM EDT) COVID-19 Comment [id number] [facility] COVID Testing Status Sent to [facility] Other (Nasal swab) 03/22/2021 5:00 PM EDT 03/22/2021 8:21 PM EDT us Lokesh Anderson MD BODY FLUIDS AND STOOLS ORDER DAYANNA Final Result [facility] [address] [place] [address] documented in this encounter Visit Diagnoses Diagnosis Encounter for laboratory testing for COVID-19 virus- Primary documented in this encounter Care Teams Auto Parker Relationship Specialty Start Date End Date Joe Reed DO [address] [place] [address] PCP - General 04/18/17 Joe Reed DO [address] [place] [address] Insurance Assigned Provider 11/06/2104/09 documented as of this encounter Additional Source Comments The information contained in this document represents components of the legal health record. It is not the complete legal health record.[facility]
--- OUTSIDE RECORDS SUMMARY | 2025-03-25 07:36 | XMS_ITS | Encounter Summary ---
Author Organization [facility] Address [address] [place] [address] Phone Care Team Providers Care Lead Project Manager Name Role Phone Joe Reed DO Primary Care Provider [phone] Joe Reed DO Unavailable Encounter Details Date Type Department Care Team (Late Contact Info) Description 03/19/2018 Procedure [facility] Endoscopy Admitting Dept Virtual Department [address] [place] [id number] Social History Tobacco Use Types Packs/Day Years [...] Upcoming Encounters Date Type Department Care Team ([facility] Contact Info) Description 11/04/2025 7:40 AM EDT Office Visit [facility] [address] [place] [address] [address]rd Floor, [address] [place] [address] Evan Collado MD [address] [facility], [address] [place] [address] [email or web address] documented as of this encounter Visit Diagnoses Not on filedocumented in this encounter Care Teams Lead Project Manager Relationship Specialty Start Date End Date Joe Reed DO [address] [facility] [place] [address] [place] [address] PCP - General 04/18/17 Joe Reed DO [address] [place] [address] Insurance Assigned Provider 11/06/2104/09 documented as of this encounter Additional Source Comments The information contained in this document represents components of the legal health record. It is not the complete legal health record.[facility]
--- OUTSIDE RECORDS SUMMARY | 2025-03-25 07:36 | XMS_ITS | Encounter Summary ---
Author Organization [facility] Address [address] [place] [address] [place] [address] Phone Care Team Providers Care Screen Repairer Crusher Name Role Phone Joe Reed DO Primary Care Provider [phone] Joe Reed DO Unavailable Encounter Details Date Type Department Care Team (Late st Contact Info) Description 03/11/2019 Ancillary Orders [facility], X-Ray - [address] [address] Rebecca Hudson, [place] [address] [place] [address] Cough Social History Tobacco Use Types Packs/Day Years [...] Description 11/04/2025 7:40 AM EDT Office Visit [facility] [address] [place] [address] [address]rd Floor, [address] [place] [address] Evan Collado MD [address] [facility], [address] [place], [place] [phone] documented as of this encounter Results * XR CHEST PA AND LATERAL 2 VIEWS (03/11/2019 10:59 AM EDT) Anatomical Region Laterality Modality Chest Radiographic Mere ging 03/11/2019 11:0 3 AM EDT Impressions 03/11/2019 11:03 AM EDT No acute process or other explanation of cough POS [id number] Narrative 03/11/2019 11:03 AM EDT PA and lateral chest, 2 views No comparison Normal heart and mediastinal contour. No nodules, infiltrate, interstitial changes or effusion Procedure Note Roman Landry MD - 03/11/2019 PA and lateral chest, 2 views No comparison Normal heart and mediastinal contour. No nodules, infiltrate, interstitial changes or effusion IMPRESSION: No acute process or other explanation of cough POS [id number] October Tristan MONSON IMG XR CHEST Final Result documented in this encounter Visit Diagnoses Diagnosis Cough Cough documented in this encounter Care Teams Screen Repairer Crusher Relationship Specialty Start Date End Date Joe Reed DO [address] [place] [address] PCP - General 04/18/17 Joe Reed DO [address] [place] [address] Insurance Assigned Provider 11/06/2104/09 documented as of this encounter Additional Source Comments The information contained in this document represents components of the legal health record. It is not the complete legal health record.[facility]
--- OUTSIDE RECORDS SUMMARY | 2025-03-25 07:36 | XMS_ITS | Encounter Summary ---
Author Organization [facility] Address [address] [place] [address] Phone Care Team Providers Care Fingerprint Technician Name Role Phone Joe Reed Primary Care Provider [phone] Encounter Details Date Type Department Care Team (Late st Contact Info) Description 03/14/2024 Procedure Pass [facility] Endoscopy Admitting Dept Virtual Department [address] [place] [address] Social History Tobacco Use Types Packs/Day Years Used Date Smoking Tobacco: Former Smokeless Tobacco: Never Comments:Quit at age 27 Alcohol Use Standard [...] Upcoming Encounters Date Type Department Care Team ([facility] st Contact Info) Description 11/04/2025 7:40 AM EDT Office Visit [facility] [address] [place] [address] [address]rd Floor, [address] [place] [address] Evan Collado MD [address] [facility] [address] [place] [address] [email or web address] documented as of this encounter Visit Diagnoses Not on filedocumented in this encounter Care Teams Fingerprint Technician Relationship Specialty Start Date End Date Joe Reed DO [address] [facility] [place] [address] [place] [address] PCP - General 04/18/17 documented as of this encounter Additional Source Comments The information contained in this document represents components of the legal health record. It is not the complete legal health record.[facility]
--- OUTSIDE RECORDS SUMMARY | 2025-03-25 07:36 | XMS_ITS | Encounter Summary ---
Author Organization [facility] Address [address] [place] [address] [place] [phone] Phone Care Team Providers Care Camera Systems Engineer Name Role Phone Joe Reed DO Primary Care Provider [phone] Joe Reed DO Unavailable Encounter Details Date Type Department Care Team (Late st Contact Info) Description 09/29/2020 Ancillary Orders Virtual Department [address] [place] [address] Eleanor Wright PA [address] [place] [address] [place] [address] Chronic cough Social History Tobacco Use Types Packs/Day Years [...] Description 11/04/2025 7:40 AM EDT Office Visit [facility] [address] [place] [address] [address]rd Floor, [address] [place] [address] Evan Collado MD [address] [place] [address], [address] [place] [address] documented as of this encounter Results * XR CHEST PA AND LATERAL 2 VIEWS (09/29/2020 3:38 PM EDT) Anatomical Region Laterality Modality Chest Computed Radiogr aphy 09/29/2020 3:45 PM EDT Impressions 09/29/2020 3:46 PM EDT No acute chest disease. Narrative 09/29/2020 3:46 PM EDT HISTORY: As above. COMPARISON: 03/11/2019. CHEST RADIOGRAPH FINDINGS: Views: 2. Lines/Tubes: None. Heart and Mediastinum: Normal. Lungs: Lungs are clear. Bones: Unremarkable. Soft Tissues: Unremarkable. Procedure Note Jorge Schwartz MD - 09/29/2020 HISTORY: As above. COMPARISON: 03/11/2019. CHEST RADIOGRAPH FINDINGS: Views: 2. Lines/Tubes: None. Heart and Mediastinum: Normal. Lungs: Lungs are clear. Bones: Unremarkable. Soft Tissues: Unremarkable. IMPRESSION: No acute chest disease. Eleanor SANCHEZ IMG XR CHEST Final Resul t documented in this encounter Visit Diagnoses Diagnosis Chronic cough Cough Chronic cough Cough documented in this encounter Care Teams Camera Systems Engineer Relationship Specialty Start Date End Date Joe Reed DO [address] [place] [address] [email or web address] PCP - General 04/18/17 Joe Reed DO [address] [place] [address] [email or web address] Insurance Assigned Provider 11/06/2104/09 documented as of this encounter Additional Source Comments The information contained in this document represents components of the legal health record. It is not the complete legal health record.[facility]
--- OUTSIDE RECORDS SUMMARY | 2025-03-25 07:36 | XMS_ITS | Encounter Summary ---
Author Organization [facility] Address [address] [place] [address] Phone Care Team Providers Care Parquetry Floor Layer Name Role Phone Joe Reed DO Primary Care Provider [phone] Joe Reed DO Unavailable Encounter Details Date Type Department Care Team (Late st Contact Info) Description 11/19/2020 Procedure Pass [facility] Endoscopy Admitting Dept Virtual Department [address] [place] [address] Social History Tobacco Use Types Packs/Day Years [...] Description 11/04/2025 7:40 AM EDT Office Visit [facility] [address] [place] [address] [address]rd Floor, [address] [place] [address] Evan Collado MD [address] [facility], [address] [place] [address] [email or web address] documented as of this encounter Visit Diagnoses Not on filedocumented in this encounter Care Teams Parquetry Floor Layer Relationship Specialty Start Date End Date Joe Reed DO [address] [facility] [place] [address] [place] [address] [email or web address] PCP - General 04/18/17 Joe Reed DO [address] [place] [address] [email or web address] Insurance Assigned Provider 11/06/2104/09 documented as of this encounter Additional Source Comments The information contained in this document represents components of the legal health record. It is not the complete legal health record.[facility]
[2025-03-25 13:41] LABS: MANUAL DIFF FLAG NO
[2025-03-25 13:46] LABS: Hematocrit 49.6 % (42.0-52.0); Hemoglobin 17.0 g/dl (14.0-18.0); Imm Gran Abs Auto 0.02 X10*3/uL (0.00-0.03); Imm Gran Pct Auto 0.3 % (0.0-0.4); Lymphocytes Absolute Auto 2.3 X10*3/uL (1.2-4.9); Mean Corpuscular HGB Conc 34.3 g/dl (31.0-36.0); Mean Corpuscular Hemoglobin 31.1 pg (27.0-33.0); Mean Corpuscular Volume 90.7 fL (80.0-98.0); NRBC Abs Auto 0.000 X10*3/uL (0.0-0.012); NRBC Pct Auto 0.0 /100WBC (0.0-0.2); Platelet Count 282 X10*3/uL (160-400); Red Blood Count 5.47 X10*6/uL (4.60-5.80); White Blood Count 6.5 X10*3/uL (4.8-10.8)
[2025-03-25 13:58] LABS: Alanine Aminotransferase 17 U/L (0-40); Albumin Level 4.6 g/dL (3.5-5.0); Alkaline Phosphatase 104 U/L (39-117); Anion Gap 13 (12-20); Aspartate Amino Transferase 21 U/L (5-37); Blood Urea Nitrogen 23 mg/dL (9-16); Calcium 9.6 mg/dL (8.4-10.2); Carbon Dioxide 28 mmol/L (22-29); Chloride 106 mmol/L (96-108); Cholesterol 138 mg/dL (<200); Estimated Glomerular Filt Rate > 60; HDL Cholesterol 41 mg/dL (>40); Potassium 4.6 mmol/L (3.3-5.1); Sodium 142 mmol/L (135-145); Total Protein 7.0 g/dL (6.5-8.0); Triglycerides 102 mg/dL (<150)
[2025-03-25 14:05] LABS: Hemoglobin A1C 239.1714 umol/L; Total Hemoglobin (HGBA1C) 4248.5946 umol/L
== END 2025-03-25 07:33 | disposition home or self-care (01) ==
LOC: HO.MANLDS 07:32
PROVIDERS: Visit Provider Internal Medicine
DX: Z00.00 Encounter for general adult medical examination without abnormal findings (principal); Z13.6 Encounter for screening for cardiovascular disorders; E11.9 Type 2 diabetes mellitus without complications
CPT/HCPCS: 36415; 80053; 80061; 83036; 85025